=== PATIENT | male | born 1950 | race Caucasian/White ===

== ENCOUNTER 2024-11-25 14:09 | Emergency (ER) | payer MEDICARE, OTHER, SELFPAY ==
--- NOTE | ~2024-11-25 | XR_ITS ---
Exam: Abdomen 1V HISTORY: right flank pain, denies urinary symptoms COMPARISON: None. TECHNIQUE: Supine images of the abdomen FINDINGS: Bowel gas pattern is non-obstructive. There is no free air or deep sulci. No pathologic calcifications are seen. Lung bases are poorly visualized. Bones and soft tissues are unremarkable. Common bile duct stent in the right upper quadrant. Fecal stasis within the colon. IMPRESSION: Nonspecific, nonobstructive bowel gas pattern. No stones identified projecting over the expected position of the right kidney. Common bile duct stent. Fecal stasis within the colon Reviewed, dictated and finalized at location A.
--- NOTE | 2024-11-25 14:12 | ED_ITS ---
HPI - Back Pain/Injury General Chief Complaint: Back Pain/Injury Stated Complaint: right side lower back pain Time Seen by Provider: 11/25/24 14:11 Source: patient Mode of arrival: ambulatory Limitations: no limitations History of Present Illness HPI Narrative: Patient is a 74-year-old male who presents with right-sided low back pain/flank pain for 1 week. Does report it wraps around flank into right hip. Daughter has been moving and they have been helping. Denies any history of kidney stones. Denies any changes in urinary habits or blood in urine. Does report pain increases with bending over. Denies any numbness, tingling and weakness to lower extremities, or loss of bowel or bladder. Patient still has appendix that had gallbladder out in August. Patient was also told he had a blood clot and liver that he was on blood thinners from June to August. Patient quit drinking alcohol in August. Related Data Allergies Allergy/AdvReac Type Severity Reaction Status Date / Time No Known Allergies Allergy Verified 11/25/24 15:42 Review of Systems Review of Systems: All systems reviewed & are unremarkable except as noted in HPI and below Constitutional: Constitutional: Denies body ache(s), Denies chills, Denies fatigue, Denies fever(s), Denies headache(s), Denies malaise and Denies weakness Eyes: Eyes: Denies blurry vision, Denies irritation and Denies loss of vision ENT: Denies otalgia, Denies headache(s), Denies nasal discharge, Denies sinus pain and Denies sore throat Cardiovascular: Cardiovascular: Denies chest pain, Denies irregular heart rhythm and Denies dyspnea Respiratory: Respiratory: Denies dyspnea Gastrointestinal: Gastrointestinal: Denies abdominal pain, Denies melena, Denies hematochezia, Denies diarrhea, Denies nausea and Denies vomiting Musculoskeletal: Musculoskeletal: Reports back pain, Denies myalgias and Denies arthralgias Integumentary/Breasts: Skin/Breast: Denies pruritus and Denies rash Neurologic: Denies headache(s), Denies loss of vision and Denies weakness Psychiatric: Psychiatric: Reports no additional psychiatric complaints Endocrine: Endocrine: Denies fatigue PMFSH Comments At time of signature, agree with nursing past medical, surgical, social and family history. There is no relevant family history pertinent to the presenting complaint. Exam Const: General: cooperative, healthy appearing, comfortable, no acute distress and well nourished Nutritional Appearance: well nourished Orientation/consciousness: patient oriented x3 Limitations: no limitations HENMT: Head: normal to inspection, normocephalic and atraumatic Ears: hearing grossly normal bilaterally and external ears normal Face/Nose/Sinus: Normal external nose present, normal facial exam and face symmetric Face and sinus: normal facial exam and face symmetric Mouth: Yes lip normal Eyes: General: appearance normal, both eyes and all related structures Alignment and Position: alignment normal and position normal Periorbital: periorbital findings normal Eyelids: eyelids normal Pupils: Equal, round and reactive pupils present EOM: EOMs intact bilaterally Neck: Neck: normal visual inspection, full ROM and supple Chest: Chest palpation & inspection: normal inspection of the chest Resp: Effort & Inspection: normal respiratory effort and able to speak in complete sentences Auscultation: clear to auscultation bilaterally Cardio: Rate: regular rate Rhythm: regular rhythm Heart sounds: S1 normal heart sound present and S2 normal heart sound present GI: Inspection: normal to inspection and other (rounded ) GI Palp: Yes Soft to palpation, No Tenderness to palpation present (GI) and No Guarding due to palpation present (GI) Auscultation: normal bowel sounds Back/Spine/Pelvis: Back: no CVA tenderness Thoracic/Lumbar Spine: pain with thoraco-lumbar ROM, paraspinal muscle tenderness on the right in the upper lumbar, No thoracic spinal tenderness and No lumbar spinal tenderness Pelvis: no sciatic notch tenderness Skin: General skin exam: normal color and no rashes or lesions noted Neuro: General: patient oriented x3 and moves all extremities Cranial nerves: Yes Equal, round and reactive pupils present Speech: normal speech Gait exam (Neuro): Normal gait present Extrem: General: normal to inspection, full ROM and no edema Psych: Appearance: grossly normal and well kempt Mental Status: mental status grossly normal Speech and movement: Normal speech and movement present Affect: normal affect Attitude: cooperative Thought process: Normal thought process present Course Course Emergency Course: Patient is aware of diagnosis, understands and agrees to treatment plan. Anticipatory guidance given. Patient agrees to follow-up as directed and is aware of reasons to seek care at the emergency department. Portions of this record may have been created with voice recognition software Level of Care: Express Care Visit Vital Signs Vital signs: Vital Signs Temperature 36.9 C 03/17/25 14:45 Pulse Rate 74 11/25/24 14:45 Respiratory Rate 20 11/25/24 14:45 Blood Pressure 123/62 11/25/24 14:45 Pulse Oximetry 100 11/25/24 14:45 Temperature 36.9 C 11/25/24 14:45 Pulse Rate 74 11/25/24 14:45 Respiratory Rate 20 11/25/24 14:45 Blood Pressure 123/62 11/25/24 14:45 Pulse Oximetry 100 11/25/24 14:45 Reviewed MDM - Back Pain/Injury MDM Narrative Medical decision making narrative: Discussed findings with patient. Patient admitted to feeling constipated the last 3 days with only passing small hard stool. Patient admits taking stool softener yesterday. Discussed red flags symptoms with patient muscle power bladder, worsening back pain, fever, chills. Patient states he will go to the emergency department if he has any worsening symptoms pain. Will treat patient with steroids and muscle relaxers for muscle strain. Also discussed ways to help with constipation. If patient is unable to pass stool he may need enema, discussed with patient. Pt well hydrated appearing, in no respiratory distress, hemodynamically stable. Recommend supportive care. The patient is stable at time of discharge the clinical impression was discussed and the patient was given the opportunity to ask questions, which were addressed as completely as possible given the information available at present. Anticipatory guidance and return to care precautions were discussed and the importance of primary care follow-up was stressed and encouraged. The patient voiced understanding of the plan, indications to return, and the need for follow-up. Exam findings show no acute concerns or changes Patient is appropriate for outpatient treatment and follow-up. Differential Diagnosis Differential diagnosis: Likely lumbar radiculopathy, sciatica, strain of lumbar region, renal colic, pyelonephritis and other (Kidney stone) Medical Records Attestation: I reviewed the patient's medical records. Lab Data Attestation: I reviewed the patient's lab results. Labs: Lab Results 11/25/24 Range/Units 15:24 POC Urine Color Yellow POC Urine Clarity Clear POC Urine pH 6.0 POC Ur Specif [place] 1.025 POC Urine Protein Negative (Negative) POC Ur Glucose (UA) Negative (Negative) POC Urine Ketones Negative (Negative) POC Urine Blood Negative (Negative) POC Urine Nitrite Negative (Negative) POC Urine Bilirubin Negative (Negative) POC Urine Urobilinogen 1.0 POC U Leukocyte Esteras Negative (Negative) Imaging Data Radiologist's impression: Exam: Abdomen 1V HISTORY: right flank pain, denies urinary symptoms COMPARISON: None. TECHNIQUE: Supine images of the abdomen FINDINGS: Bowel gas pattern is non-obstructive. There is no free air or deep sulci. No pathologic calcifications are seen. Lung bases are poorly visualized. Bones and soft tissues are unremarkable. Common bile duct stent in the right upper quadrant. Fecal stasis within the colon. IMPRESSION: Nonspecific, nonobstructive bowel gas pattern. No stones identified projecting over the expected position of the right kidney. Common bile duct stent. Fecal stasis within the colon Discharge Plan Discharge Clinical Impression: Strain of lumbar region, Constipation Patient Disposition: Home, Self-Care Condition: Stable Instructions: Constipation (ED), Low Back Strain (ED) Additional Instructions: Please follow up with your Primary Care Doctor within 48-72 hours - call for an appointment. Walking and other gentle exercising several times a week has been shown to improve back pain; bed rest is not recommended. Take steroids per package instruction, take muscle relaxers every 8 hours as needed for muscle spasm. do not drive or make any important decisions while on this medication for it can make you drowsy. You may apply heat or cold to the area as needed. Contact your doctor or go to the emergency department if you develop problems with bladder or bowel function, weakness or loss of feeling in one or both of your legs, or any other serious concerns. Take Senokot 1-3 tabs, ingest with full glass of water. Also take Miralax 1 capful twice daily until bowel movements are regular. To maintain soft stools after constipation is relieved, you may take Colace 100- 200 mg up to three times per day. Maintain fluid intake 6-8 glasses per day. Please increase fibers (fruits and vegetables) in your diet, or use bulk fiber supplements. Decrease or eliminate intake of fast food and junk foods. Patient Language: Mohawk Prescriptions: New baclofen 10 mg tablet 10 mg PO TID 5 Days Qty: 15 0RF methylprednisolone [Medrol (Abner)] 4 mg tablets,dose pack See Rx Instructions .ROUTE .COMPLEX Qty: 21 0RF Rx Instructions: orally per package directions sennosides [Senokot] 8.6 mg tablet 17.2 mg PO HS 7 Days Qty: 14 0RF polyethylene glycol 3350 [Miralax] 17 gram/dose powder 17 g PO DAILY 5 Days Qty: 85 0RF Follow-up/Referrals: [facility] [Primary Care Provider] - 3 Days Time of Disposition: 15:46
[2024-11-25 14:45] VITALS: BP 123/62; PULSE 74; RESP 20; TEMP 36.9; O2SAT 100
[2024-11-25 15:27] LABS: EDUAAPPEAR Clear; EDUABILI Negative (Negative); EDUABLOOD Negative (Negative); EDUACOLOR1 Yellow; EDUAGLUCOSE Negative (Negative); EDUAKETONE Negative (Negative); EDUALEUKO Negative (Negative); EDUANITRATE Negative (Negative); EDUAPROTEIN Negative (Negative); EDUASPGRAVITY 1.025
== END 2024-11-25 15:54 | disposition home or self-care (01) ==
PROVIDERS: Emergency Provider Nurse Practitioner Family
DX: S39.012A Strain of muscle, fascia and tendon of lower back, initial encounter (principal); X58.XXXA Exposure to other specified factors, initial encounter; K59.00 Constipation, unspecified; E78.00 Pure hypercholesterolemia, unspecified; M19.90 Unspecified osteoarthritis, unspecified site; M06.9 Rheumatoid arthritis, unspecified; Z86.2 Personal history of diseases of the blood and blood-forming organs and certain disorders involving the immune mechanism
CPT/HCPCS: 74018; 81003; 99203; G0463